=== PATIENT | male | born 1990 | race American Indian/Alaskan Native ===

== ENCOUNTER 2017-08-05 15:39 | Inpatient (IN) | payer MEDICAID ==
[2017-08-05] MEDS ORDERED: Sodium Chloride 0.9% 1,000 ML IV STA (16:40)
--- NOTE | 2017-08-05 16:43 | ED PDOC ---
HPI: Male Pain Time Seen by Provider: 08/05/17 16:15 Chief Complaint (Nursing): Male Genitourinary Chief Complaint (Provider): Scrotal sac pain History Per: Patient History/Exam Limitations: no limitations Onset/Duration Of Symptoms: Days (4) Current Symptoms Are (Timing): Still Present Additional Complaint(s): Pt. with pain to the scrotal sac for 4 days. No testicular pain. No weakness, numbness, tingles, abd pain, dysuria, fever, back pain. No injury. Has girlfriend and sexually active. Past Medical History Reviewed: Nursing Documentation, Vital Signs Vital Signs: Last Vital Signs Temp 99.3 F 08/05/17 16:05 Pulse 96 H 08/05/17 16:05 Resp 18 08/05/17 16:05 BP 127/76 08/05/17 16:05 Pulse Ox 100 08/05/17 16:05 - Medical History PMH: No Chronic Diseases - Surgical History Surgical History: No Surg Hx - Family History Family History: States: Unknown Family Hx - Living Arrangements Living Arrangements: With Family - Social History Current smoker - smoking cessation education provided: No Alcohol: None Drugs: Denies - Home Medications Home Medications: Ambulatory Orders Medication Instructions Recorded No Known Home Med 08/05/17 - Allergies Allergies/Adverse Reactions: Allergies Allergy/AdvReac Type Severity Reaction Status Date / Time No Known Allergies Allergy Verified 08/05/17 16:08 Review of Systems ROS Statement: Except As Marked, All Systems Reviewed And Found Negative Genitourinary Male: Positive for: Scrotal Pain. Negative for: Penile Discharge , Penile Pain Physical Exam - Reviewed Nursing Documentation Reviewed: Yes Vital Signs Reviewed: Yes - Physical Exam Appears: Positive for: Non-toxic, No Acute Distress Head Exam: Positive for: ATRAUMATIC, NORMAL INSPECTION, NORMOCEPHALIC Skin: Positive for: Normal Color, Warm, DRY Cardiovascular/Chest: Positive for: Regular Rate, Rhythm Respiratory: Positive for: CNT, Normal Breath Sounds Gastrointestinal/Abdominal: Positive for: Normal Exam, Bowel Sounds, Soft. Negative for: Tenderness Male Genital Exam: Positive for: scrotum tenderness (R), scrotum tenderness (L) , other (bottom sac tender and swelling; no gross erythema, mild induration; no fluctuance; b/l testicles nontender with good cremasteric reflex b/l. No perineal erythema or discoloration/tenderness. Exam done with Jeyson (tech in room as supervising for exam) ). Negative for: testicular tenderness (R), testicular tenderness (L), urethral discharge Back: Positive for: Normal Inspection. Negative for: L CVA Tenderness, R CVA Tenderness Extremity: Positive for: Normal ROM. Negative for: Tenderness, Pedal Edema Neurologic/Psych: Positive for: Alert, Oriented - Laboratory Results Result Diagrams: 08/05/17 18:09 08/05/17 18:09 Interpretation Of Abn Labs: 19.3 wbc - ECG O2 Sat by Pulse Oximetry: 100 Pulse Ox Interpretation: Normal - Progress ED Course And Treament: IMPRESSION: Complex hypervascular collection inferior to left testicle, 4.0 cm greatest dimension. Suspicious for abscess. This does not appear to be within the scrotal wall but is within the left hemiscrotum. 5: Pending call back from Dr. Castillo. 1899: Pt. difficult stick. IV attempts being made. 1914: Dr. Castillo in ER and will see pt. 1938: Dr. Castillo saw pt. Wants admit and IV rocephin. He will admit to his service. Disposition - Clinical Impression Clinical Impression: Scrotal abscess, Sepsis - Patient ED Disposition Is Patient to be Admitted: Yes Counseled Patient/Family Regarding: Studies Performed, Diagnosis - Disposition Disposition Time: 19:40 Condition: FAIR - Pt Status Changed To: Hospital Disposition Of: Inpatient - Admit Certification Admit to Inpatient:: After my assessment, the patient will require hospitalization for at least two midnights. This is because of the severity of symptoms shown, intensity of services needed, and/or the medical risk in this patient being treated as an outpatient. - POA Present On Arrival: None
--- NOTE | 2017-08-05 17:44 | US ---
HISTORY: scrotal sac tenderness TECHNIQUE: Realtime sonography through the scrotum with color and doppler flow. COMPARISON: None Available. FINDINGS: RIGHT TESTICLE: Measures 3.5 x 1.2 x 1.7 cm. Normal echotexture and flow. RIGHT EPIDIDYMIS: Normal size, morphology and vascularity. LEFT TESTICLE: Measures 3.3 x 1.5 x 2.1 cm. Normal echotexture and flow. Inferior to the left testicle is a heterogeneous collection, measuring 4.0 x 2.3 x 3.3 cm. There is peripheral hypervascularity about this collection. This is suggestive of an abscess. LEFT EPIDIDYMIS: Normal size, morphology and vascularity. HYDROCELE: None. VARICOCELE: None. OTHER FINDINGS: None. IMPRESSION: Complex hypervascular collection inferior to left testicle, 4.0 cm greatest dimension. Suspicious for abscess. This does not appear to be within the scrotal wall but is within the left hemiscrotum.
[2017-08-05 17:56] LABS: RENAL EPITHELIAL 1 /hpf (0-3); URINE BACTERIA RARE (<OCC); URINE BILIRUBIN NEGATIVE (NEGATIVE); URINE BLOOD NEGATIVE (NEGATIVE); URINE CLARITY CLOUDY (Clear); URINE COLOR YELLOW (YELLOW); URINE GLUCOSE (UA) NEG (Normal); URINE LEUKOCYTE ESTERASE NEG Leu/uL (Negative); URINE PROTEIN NEGATIVE (NEGATIVE)
[2017-08-05 18:18] LABS: BASO % 0.1 % (0.0-2.0); EOS # 0.1 K/uL (0.0-0.7); EOS % 0.3 % (0.0-4.0); HEMOGLOBIN 14.3 g/dL (12.0-18.0); LYMPH # 2.6 K/uL (1.0-4.3); LYMPH % 13.4 % (20.0-40.0); MEAN CELL VOLUME 83.2 fl (80.0-94.0); MEAN CORPUSCULAR HEMOGLOBIN 27.6 pg (27.0-31.0); MEAN CORPUSCULAR HGB CONC 33.1 g/dL (33.0-37.0); MEAN PLATELET VOLUME 7.9 fl (7.2-11.7); MONO # 1.7 K/uL (0.0-0.8); MONO % 8.6 % (0.0-10.0); NEUT # 14.9 K/uL (1.8-7.0); NEUT % 77.6 % (50.0-75.0); RBC 5.2 Mil/uL (4.40-5.90); RED CELL DISTRIBUTION WIDTH 13.7 % (11.5-14.5); WHITE BLOOD COUNT 19.3 K/uL (4.8-10.8)
[2017-08-05 18:29] LABS: ALB/GLOB RATIO 0.9 (1.0-2.1); ALBUMIN 4.3 g/dL (3.5-5.0); ALT/SGPT 26 U/L (21-72); AST/SGOT 41 U/L (17-59); BLOOD UREA NITROGEN 10 mg/dl (9-20); CALCIUM 9.7 mg/dL (8.4-10.2); GFR AFRICAN-AMERICAN > 60; GFR NON-AFRICAN AMERICAN > 60
[2017-08-05] MEDS ORDERED: Lidocaine/Prilocaine CREAM 5GM TP STA (18:57)
[2017-08-05] MEDS ORDERED: Lidocaine/Prilocaine CREAM 5GM TP ONE (19:00)
[2017-08-05] MEDS ORDERED: cefTRIAXone (Rocephin) 1 gm Inj IV STA (19:38)
[2017-08-05 19:39] LABS: VENOUS BLOOD GAS BASE EXCESS 3.4 mmol/L (0.0-2.0); VENOUS BLOOD GAS PCO2 59 mmHg (40-60); VENOUS BLOOD GAS PO2 25 mm/Hg (30-55); VENOUS BLOOD PH 7.33 (7.32-7.43)
[2017-08-05] MEDS ORDERED: cefTRIAXone IV 1 gm in Dextros 50 ML IVPB ONE (20:00)
[2017-08-05] MEDS ORDERED: cefTRIAXone (Rocephin) 1 gm Inj ONE (20:09)
[2017-08-06 12:41] LABS: HEMOGLOBIN 13.8 g/dL (12.0-18.0); MEAN CELL VOLUME 82.4 fl (80.0-94.0); MEAN CORPUSCULAR HEMOGLOBIN 27.6 pg (27.0-31.0); MEAN CORPUSCULAR HGB CONC 33.5 g/dL (33.0-37.0); RBC 4.99 Mil/uL (4.40-5.90); RED CELL DISTRIBUTION WIDTH 13.9 % (11.5-14.5); WHITE BLOOD COUNT 20.4 K/uL (4.8-10.8)
[2017-08-06 12:45] LABS: BLOOD UREA NITROGEN 11 mg/dl (9-20); CALCIUM 9.6 mg/dL (8.4-10.2); GFR AFRICAN-AMERICAN > 60; GFR NON-AFRICAN AMERICAN > 60
[2017-08-06] MEDS ORDERED: ceFAZolin IV 1 gm in Dextrose 0 GM/0 ML BAG IVPB ONE (13:55)
[2017-08-06] MEDS ORDERED: Lidocaine Hydrochloride 1% 0 ML ONE (13:55)
[2017-08-06] MEDS ORDERED: Bupivacaine 0.5% Inj(30mL) ONE (13:55)
[2017-08-06] MEDS ORDERED: cefTRIAXone (Rocephin) 1 gm Inj ONE (14:10)
[2017-08-06] MEDS ORDERED: Propofol 10 mg/ml Inj (20 ML) ONE ×2 (14:12→14:59)
[2017-08-06] MEDS ORDERED: Midazolam 2 MG/2 ML VIAL ONE (14:12)
[2017-08-06] MEDS ORDERED: Lidocaine 2% Jelly (5 ml) TOP ONE (14:12)
[2017-08-06] MEDS ORDERED: Lidocaine 1% 5ml Abboject IV ONE ×2 (14:12→15:00)
[2017-08-06] MEDS ORDERED: Lactated Ringer's 1,000 ML IV ONE (14:29)
[2017-08-06] MEDS ORDERED: cefTRIAXone (Rocephin) 1 gm Inj IVPB ONE (15:00)
[2017-08-06] MEDS ORDERED: HYDROmorphone 0.5 mg/0.5 ml ISec IVP PRN (15:34)
[2017-08-06] MEDS ORDERED: Lactated Ringer's 1,000 ML IV SCH (15:45)
[2017-08-06 16:40] VITALS: BP 135/76; PULSE 74; RESP 20; TEMP 98.4; O2SAT 98
--- NOTE | 2017-08-12 02:23 | OP ---
PROCEDURE DATE: 08/06/2017 PREOPERATIVE DIAGNOSIS: Left scrotal abscess. POSTOPERATIVE DIAGNOSIS: Left scrotal abscess. PROCEDURE PERFORMED: An incision and drainage of left scrotal abscess. DESCRIPTION OF PROCEDURE: The patient was placed in the operating room table in a frog-leg position after he was given general anesthesia. The area of the groin was draped and prepped in a sterile manner. The patient has a fluctuant mass in the left lower scrotum. I incised over, drained significant amount of purulent fluid from that area. I cultured it for anaerobic and aerobic culture. Once this was done, I opened the cavity sufficiently to be able to drain it, clean it manually and with the irrigation. Once this was done, then I packed the wound site with iodoform gauze dressing and then placed 2 Vicryl sutures on each end of the incision to maintain the incision open in the center and then I placed the gauze dressing over that wound site. The patient then was taken from the operating room in good condition. Blood loss was less than 20 mL. Josie Castillo MD
== END 2017-08-06 19:15 | disposition home or self-care (01) | DRG 728 ==
LOC: H.ER 15:39 → H.ERHOLD 19:40 → H.TEL 23:15
PROVIDERS: ADMIT Urology; ATTEND Urology
PROC: 0V950ZZ Drainage of Scrotum, Open Approach (ICD-10-PCS; principal; 2017-08-06 14:00)
DX: N49.2 Inflammatory disorders of scrotum (principal); B95.7 Other staphylococcus as the cause of diseases classified elsewhere

== ENCOUNTER 2017-08-10 13:45 | Emergency (ER) | payer MEDICAID ==
[2017-08-10 13:58] VITALS: BP 133/71; PULSE 86; RESP 18; TEMP 98.6; O2SAT 99
--- NOTE | 2017-08-10 15:00 | ED PDOC ---
HPI: Wound Care - HPI Time Seen by Provider: 08/10/17 14:30 Chief Complaint (Nursing): Wound Check History Per: Patient History Of Present Illness: 27 y/o M admitted for a scrotal abscess 5 days ago, here for wound packing and dressing change, try to f/u with dr freire but was unable to get an appoinment no f/c/n/v, mild drainage Current Symptoms Are (Timing): Still Present Severity: Mild Additional History Per: Patient Past Medical History Reviewed: Historical Data, Nursing Documentation, Vital Signs Vital Signs: Last Vital Signs Temp 98.6 F 08/10/17 13:53 Pulse 86 08/10/17 13:53 Resp 18 08/10/17 13:53 BP 133/71 08/10/17 13:53 Pulse Ox 99 08/10/17 13:53 - Medical History PMH: No Chronic Diseases - Family History Family History: States: Unknown Family Hx - Living Arrangements Living Arrangements: With Family - Social History Current smoker - smoking cessation education provided: No - Immunization History Hx Tetanus Toxoid Vaccination: No Hx Influenza Vaccination: No Hx Pneumococcal Vaccination: No - Home Medications Home Medications: Ambulatory Orders Medication Instructions Recorded No Known Home Med 08/05/17 - Allergies Allergies/Adverse Reactions: Allergies Allergy/AdvReac Type Severity Reaction Status Date / Time No Known Allergies Allergy Verified 08/05/17 16:08 Review of Systems ROS Statement: Except As Marked, All Systems Reviewed And Found Negative Constitutional: Negative for: Fever, Chills Cardiovascular: Negative for: Chest Pain, Palpitations Respiratory: Negative for: Cough, Shortness of Breath Gastrointestinal: Negative for: Nausea, Vomiting, Abdominal Pain Genitourinary Male: Positive for: Scrotal Pain. Negative for: Dysuria, Hematuria, Penile Discharge, Rash Physical Exam - Reviewed Nursing Documentation Reviewed: Yes Vital Signs Reviewed: Yes - Physical Exam Appears: Positive for: Well (obese) Head Exam: Positive for: ATRAUMATIC, NORMAL INSPECTION, NORMOCEPHALIC Eye Exam: Positive for: Normal appearance Neck: Positive for: Normal, Painless ROM, Supple Cardiovascular/Chest: Positive for: Regular Rate, Rhythm Respiratory: Positive for: Normal Breath Sounds Gastrointestinal/Abdominal: Positive for: Normal Exam, Bowel Sounds, Soft. Negative for: Tenderness Male Genital Exam: Positive for: other (chaperoned by male tech). Negative for : scrotum tenderness (R), scrotum tenderness (L), testicular tenderness (R), testicular tenderness (L) Neurologic/Psych: Positive for: Alert, marketing strategy lead II-XII, Oriented. Negative for: Motor/Sensory Deficits - ECG O2 Sat by Pulse Oximetry: 99 Pulse Ox Interpretation: Normal Medical Decision Making Medical Decision Making: discussed tani will see in the office now. all of pt's questions were answered and pt agree's with plan. pt leaves ambulatory and in good spirits Disposition - Clinical Impression Clinical Impression: Encounter for wound re-check, Scrotal abscess Counseled Patient/Family Regarding: Studies Performed, Diagnosis, Need For Followup, Rx Given - Disposition Referrals: Josie Freire MD [Medical Doctor] - (today) Disposition: Routine/Home Disposition Time: 14:58 Condition: GOOD Instructions: Surgical Wound (DC)
== END 2017-08-10 15:20 | disposition home or self-care (01) ==
LOC: H.ER 13:45
DX: Z48.00 Encounter for change or removal of nonsurgical wound dressing (principal)